=== PATIENT | male | born 1990 | race African-American/Black ===

== ENCOUNTER 2020-11-09 09:40 | Emergency (ER) | payer OTHER, SELFPAY ==
[2020-11-09 13:55] LABS: SARS-CoV-2 PCR by NAA Not Detected (NotDetected)
== END 2020-11-09 10:05 | disposition home or self-care (01) ==
LOC: ERS 09:40
DX: R51.9 Headache, unspecified (principal); J02.9 Acute pharyngitis, unspecified; Z20.822 Contact with and (suspected) exposure to COVID-19
CPT/HCPCS: 87635; 99283; U0003; U0005